=== PATIENT | female | born 1970 | race Caucasian/White ===

== ENCOUNTER 2019-05-21 15:45 | Emergency (ER) | payer OTHER ==
[~2019-05-21] VITALS: Ht 154.9 cm; Wt 77.0 kg
[2019-05-21] MEDS ORDERED: CELEXA20 MG PO (15:58)
[2019-05-21] MEDS ORDERED: SINGULAIR10 MG PO (15:59)
[2019-05-21] MEDS ORDERED: ULTRAM50 M1 PO (17:18)
[2019-05-21 17:33] VITALS: BP 124/80
== END 2019-05-21 18:04 | disposition home or self-care (01) | DRG 563 ==
LOC: ED 15:45
DX: S83.91XA Sprain of unspecified site of right knee, initial encounter (principal); E11.9 Type 2 diabetes mellitus without complications; V23.5XXA Motorcycle passenger injured in collision with car, pick-up truck or van in traffic accident, initial encounter
CPT/HCPCS: L1830

== ENCOUNTER 2021-10-21 08:45 | Day surgery (SDC) | payer BC ==
[~2021-10-21] VITALS: Ht 154.9 cm; Wt 74.8 kg
[~2021-10-21 08:45] MED LIST: ALLEGRA180 MG PO; CELEXA; CELEXA20 MG PO; CITALOPRAM10 M1; CITALOPRAM20 M1 PO; METFORMIN PO; METFORMIN500 M2 PO; NEXIUM; NEXIUM40 M1 PO; OMEPRAZOLE20 MG PO; OZEMPIC2 MG/1.5 M SC; PRAMIPEXOLE DI1.5 M1 PO; ROPINIROLE1 MG PO; SINGULAIR10 MG PO; ULTRAM50 M1 PO
[2021-10-21 11:55] VITALS: BP 158/91
== END 2021-10-21 12:30 | disposition home or self-care (01) | DRG 395 ==
LOC: ENDO 08:45 → ORM 09:00 → ENDO 10:30 → ORM 10-24 09:30
PROVIDERS: ATTEND Surgery
PROC: 0DBB8ZX Excision of Ileum, Via Natural or Artificial Opening Endoscopic, Diagnostic (ICD-10-PCS; principal; 2021-10-21)
PROC: 0DB68ZX Excision of Stomach, Via Natural or Artificial Opening Endoscopic, Diagnostic (ICD-10-PCS; 2021-10-21)
DX: K64.8 Other hemorrhoids (principal); K44.9 Diaphragmatic hernia without obstruction or gangrene; K31.7 Polyp of stomach and duodenum; E11.9 Type 2 diabetes mellitus without complications; E66.9 Obesity, unspecified; Z98.84 Bariatric surgery status; Z79.84 Long term (current) use of oral hypoglycemic drugs